=== PATIENT | male | born 1965 | race Caucasian/White ===

== ENCOUNTER 2017-11-09 21:43 | Emergency (ER) | payer MEDICAID ==
[~2017-11-09] VITALS: Ht 175.3 cm; Wt 101.5 kg
[2017-11-09 21:49] VITALS: BP 157/81
== END 2017-11-10 01:40 | disposition left against medical advice (07) ==
LOC: ED 23:59
DX: N43.3 Hydrocele, unspecified (principal)
CPT/HCPCS: 76870; 99284

== ENCOUNTER 2018-01-06 09:31 | Emergency (ER) | payer MEDICAID ==
[~2018-01-06] VITALS: Ht 177.8 cm; Wt 99.2 kg
[2018-01-06 09:35] VITALS: BP 165/91
[2018-01-06] MEDS ORDERED: HYDROcodone/APAP 5/325 TABLET ONE (10:27)
[2018-01-06] MEDS ORDERED: LIDOCAINE-MPF 1%, 2ML ONE ×2 (10:28)
[2018-01-06] MEDS ORDERED: LIDOCAINE-MPF 1%, 5ML INFIL ONE (10:30)
[2018-01-06] MEDS ORDERED: BENZOCAINE 20% SPRAY 0.5ML TP ONE (10:30)
[2018-01-06] MEDS ORDERED: HYDROcodone/APAP 5/325 TABLET PO ONE (10:30)
[2018-01-06] MEDS ORDERED: BENZOCAINE AEROSOL SPRAY 20%, 60ML ONE (10:35)
== END 2018-01-06 11:27 | disposition home or self-care (01) ==
LOC: ED 10:51
DX: K04.7 Periapical abscess without sinus (principal); R68.84 Jaw pain
CPT/HCPCS: 41800

== ENCOUNTER 2018-04-22 18:09 | Emergency (ER) | payer MEDICAID ==
[~2018-04-22] VITALS: Ht 177.8 cm; Wt 94.5 kg
[2018-04-22 18:18] VITALS: BP 150/83
== END 2018-04-22 22:06 | disposition left against medical advice (07) ==
LOC: ED 22:00
DX: L03.116 Cellulitis of left lower limb (principal); B86 Scabies; L40.9 Psoriasis, unspecified; Z59.0 Homelessness
CPT/HCPCS: 71101; 93971; 99284; J7512